=== PATIENT | male | born 1940 | race African-American/Black ===

== ENCOUNTER → 2017-01-29 | Outpatient (CLI) | payer MEDICARE, OTHER | END | disposition home or self-care (01) | LOC: RADPV 08:32 | PROVIDERS: ATTEND Specialist | DX: I65.22 Occlusion and stenosis of left carotid artery (principal); R90.82 White matter disease, unspecified; I67.82 Cerebral ischemia; Z86.73 Personal history of transient ischemic attack (TIA), and cerebral infarction without residual deficits | CPT/HCPCS: 70551; 93880; 95816 ==